=== PATIENT | female | born 1980 | race Caucasian/White ===

== ENCOUNTER 2018-03-21 14:53 | Emergency (ER) | payer OTHER ==
[~2018-03-21] VITALS: Ht 157.5 cm; Wt 94.3 kg
[2018-03-21 15:06] VITALS: BP 147/83
== END 2018-03-21 16:48 | disposition home or self-care (01) ==
LOC: ED 16:42
DX: I80.01 Phlebitis and thrombophlebitis of superficial vessels of right lower extremity (principal); Z87.891 Personal history of nicotine dependence
CPT/HCPCS: 99284